=== PATIENT | male | born 1990 | race Caucasian/White ===

== ENCOUNTER 2022-09-30 13:00 | Outpatient (RCR) | payer OTHER ==
[~2022-09-30 13:00] MED LIST: AMOXICILLIN/CLA1 TA1 PO; NO HOME MEDICATIONS; PERCOCET 325 MG1 TA2 PO; ULTRAM 50MG TAB50 MG PO
== END 2022-10-06 | disposition home or self-care (01) ==
LOC: WSOT
DX: S52.04 Fracture of coronoid process of ulna (principal); X58.XXXD Exposure to other specified factors, subsequent encounter

== ENCOUNTER → 2022-11-03 | Outpatient (RCR) | payer OTHER | END | disposition home or self-care (01) | LOC: WSOT | DX: S52.041D Displaced fracture of coronoid process of right ulna, subsequent encounter for closed fracture with routine healing (principal); X58.XXXD Exposure to other specified factors, subsequent encounter ==

== ENCOUNTER 2022-12-03 15:00 | Outpatient (RCR) | payer OTHER | END 2022-12-04 | disposition home or self-care (01) | LOC: WSOT | DX: S52.041D Displaced fracture of coronoid process of right ulna, subsequent encounter for closed fracture with routine healing (principal); X58.XXXD Exposure to other specified factors, subsequent encounter ==